=== PATIENT | male | born 1965 | race Caucasian/White ===

== ENCOUNTER 2017-05-20 13:36 | Emergency (ER) | payer BC ==
[~2017-05-20] VITALS: Ht 180.3 cm; Wt 95.0 kg
[~2017-05-20 13:36] MED LIST: ATRIPLA PO; CIPR500T2 PO; METR-1 PO
[2017-05-20 13:38] VITALS: BP 134/77; PULSE 80; RESP 24; TEMP 97.6; O2SAT 99
[2017-05-20] MEDS ORDERED: SODIUM CHLOR 0.9% 1000 ML INJ 1,000 ML IV SCH (14:02)
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
[2017-05-20] MEDS ORDERED: EMTR1TAB2 PO (14:08)
[2017-05-20] MEDS ORDERED: MORPHINE SULFATE 4 MG/ML INJ IV PUSH ONE ×2 (14:15→14:30)
[2017-05-20] MEDS ORDERED: SODIUM CHLORIDE 0.9% FLUSH 10 ML FLUSH IV FLUSH PRN (14:15)
[2017-05-20] MEDS ORDERED: ONDANSETRON HCL 4 MG/2 ML VIAL IVP ONE (14:15)
[2017-05-20 14:22] VITALS: BP 123/73; PULSE 78; RESP 13; O2SAT 99
[2017-05-20] MEDS ORDERED: PROPOFOL 500 MG/50 ML BTL IV ONE (14:30)
[2017-05-20 15:18] VITALS: O2SAT 85; O2SAT 97
--- NOTE | 2017-05-20 15:18 | RADRPT ---
EXAM DATE/TIME: 05/20/2017 14:38 [facility] COMPARISON: No previous studies available for comparison. INDICATIONS : Patient states he fell, left wrist pain. MEDICAL HISTORY : None. SURGICAL HISTORY : None. ENCOUNTER: Initial ACUITY: 1 day PAIN SCORE: 10/10 LOCATION: Left Wrist FINDINGS: 3 views left wrist. Mildly impacted mildly comminuted distal radius fracture with dorsal angulation m easuring 35. No evidence of involvement of the radiocarpal joint. CONCLUSION: Impacted distal radius fracture with dorsal angulation of distal fragment. Ricky Gold MD on May 20, 2017 at 15:15 Board Certified Radiologist. This report was verified electronically.
[2017-05-20 15:23] VITALS: BP 138/81; PULSE 83; RESP 14; O2SAT 97
[2017-05-20 16:25] VITALS: BP 126/70; PULSE 77; RESP 15; O2SAT 100
--- NOTE | 2017-05-20 16:33 | RADRPT ---
EXAM DATE/TIME: 05/20/2017 15:47 [facility] COMPARISON: WRIST LEFT COMPLETE ([id number]), May 20, 2017, 14:38. INDICATIONS : Post reduction of Left wrist MEDICAL HISTORY : None. SURGICAL HISTORY : None. ENCOUNTER: Subsequent ACUITY: 1 day PAIN SCORE: 5/10 LOCATION: Left Wrist FINDINGS: 2 views left wrist. Splint obscures fine bone detail. Distal radius fracture again seen. Near anatomi c alignment. CONCLUSION: Distal radius fracture status post reduction. Ricky Gold MD on May 20, 2017 at 16:31 Board Certified Radiologist. This report was verified electronically.
[2017-05-20] MEDS ORDERED: NORC5TAB PO (16:50)
[2017-05-20] MEDS ORDERED: IBUP800T23 PO (16:50)
== END 2017-05-20 17:22 | disposition home or self-care (01) ==
LOC: NEPE 13:36
DX: S62.102A Fracture of unspecified carpal bone, left wrist, initial encounter for closed fracture (principal); W01.0XXA Fall on same level from slipping, tripping and stumbling without subsequent striking against object, initial encounter
CPT/HCPCS: 25605; 73100; 73110; 96374; 96375; 96376; 99285; J2270; J2405; J7030